=== PATIENT | female | born 1985 | race Two or more races ===

== ENCOUNTER 2016-12-31 13:30 | Emergency (ER) | payer OTHER ==
[2016-12-31 14:50] LABS: URINE BILIRUBIN NEGATIVE (NEGATIVE); URINE BLOOD 1+ (NEGATIVE); URINE GLUCOSE (UA) TRACE (NEGATIVE); URINE LEUKOCYTE ESTERASE TRACE (NEGATIVE); URINE NITRITE NEGATIVE (NEGATIVE); URINE PROTEIN TRACE (NEGATIVE); URINE UROBILINOGEN NORMAL (0-1 mg/dl)
[2016-12-31 14:51] LABS: HCG,QUALITATIVE URINE NEGATIVE; URINE APPEARANCE HAZY; URINE COLOR AMBER
[2016-12-31 14:56] LABS: URINE WBC 0-1 /hpf
[2016-12-31 14:57] LABS: URINE BACTERIA RARE
--- NOTE | 2016-12-31 15:56 | RAD ---
CHEST 2 VIEWS HISTORY: Cough. Frontal and lateral chest radiographs dated 12/31/2016. COMPARISON: None. FINDINGS: FOCAL AIRSPACE OPACITY: No gross airspace consolidation. PLEURAL EFFUSION: None. CARDIOMEDIASTINAL SILHOUETTE: Nonenlarged. PNEUMOTHORAX: None identified. OSSEOUS STRUCTURES: No grossly destructive lesions. IMPRESSION: No acute cardiopulmonary process noted.
[2017-01-02 13:40] LABS: CHLAMYDIA BD Negative (Negative); N.GONORRHOEAE BD Negative (Negative); SOURCE Urine (())
== END 2016-12-31 16:48 | disposition home or self-care (01) ==
LOC: ED 13:30
DX: J06.9 Acute upper respiratory infection, unspecified (principal); F17.210 Nicotine dependence, cigarettes, uncomplicated

== ENCOUNTER 2017-01-05 17:34 | Emergency (ER) | payer OTHER ==
[2017-01-05] MEDS ORDERED: ALBUTEROL/IPRATROPIUM 2.5/0.5 MG 3 ML/EACH DOSE ONE (18:15)
[2017-01-05] MEDS ORDERED: PREDNISONE 20 MG TABLET ONE (18:15)
[2017-01-05] MEDS ORDERED: IBUPROFEN 800 MG TABLET ONE (18:15)
== END 2017-01-05 18:53 | disposition home or self-care (01) ==
LOC: ED 17:34
DX: B34.9 Viral infection, unspecified (principal); J02.9 Acute pharyngitis, unspecified; F17.210 Nicotine dependence, cigarettes, uncomplicated
CPT/HCPCS: 94640; 94664; 99283 ×2; A9270; J7512